=== PATIENT | female | born 1935 | race Caucasian/White ===

== ENCOUNTER 2019-11-04 07:35 | Outpatient (CLI) | payer MEDICARE, SELFPAY ==
[2019-11-04 08:09] LABS: Alanine Aminotransferase 17 U/L (4-35); Albumin Level 4.2 g/dL (3.5-5.1); Alkaline Phosphatase 56 U/L (38-126); Aspartate Amino Transferase 25 U/L (14-36); Bilirubin,Total 0.3 mg/dL (0.2-1.3); Blood Urea Nitrogen 16 mg/dL (7-17); Calcium 9.6 mg/dL (8.4-10.2); Carbon Dioxide 22 mmol/L (22-30); Chloride 108 mmol/L (98-107); Cholesterol 126 mg/dL (0-200); Estimated Glomerular Filt Rate 43; Glucose 119 mg/dL (65-105); HDL Direct 48 mg/dL; Sodium 139 mmol/L (137-145); Triglycerides 117 mg/dL (<150)
[2019-11-04 08:20] LABS: LDL Cholesterol Direct 57 mg/dL
[2019-11-04 08:35] LABS: Creatinine Urine 172.9 mg/dL
[2019-11-04 08:40] LABS: MALB Creatinine Ratio 22.8 mg/g (0-30); Microalbumin Urine Random 39.5 mg/L (0-16.7)
== END 2019-11-04 07:36 | disposition home or self-care (01) ==
PROVIDERS: PCP Internal Medicine; Referring Provider Internal Medicine; Visit Provider Nurse Practitioner
DX: E03.9 Hypothyroidism, unspecified (principal); E11.9 Type 2 diabetes mellitus without complications; E78.5 Hyperlipidemia, unspecified
CPT/HCPCS: 36415; 80053; 80061; 82043; 83036; 84443

== ENCOUNTER → 2020-02-02 15:20 | Outpatient (CLI) | payer MEDICARE, SELFPAY ==
--- NOTE | ~2020-02-02 | XR_ITS ---
EXAMINATION: XR foot LT min 3V DATE: 02/02/2020 16:24 INDICATION: Left foot pain. TECHNIQUE: Dorsoplantar, two oblique and lateral views of the left foot were obtained. COMPARISON: None. FINDINGS: No fracture. Mild hallux valgus with bunion including mild hypertrophic change at the medial head of the first metatarsal. There is a lucency with thin sclerotic margins at the medial head of the first metatarsal with suggestion of a discontinuous cortex with overhanging edge raising suspicion for gout . There is mild overlying soft tissue swelling. 3 mm long thin metallic foreign body in the soft tiss ues medial/plantar to the base of the left first proximal phalanx. Mild polyarticular osteoarthritis in the mid and forefoot most prominent at the first metatarsophalangeal joint. Achilles and plantar c alcaneal spurs. Diffuse osteopenia. IMPRESSION: 1. Prominent erosion at the medial head of the first metatarsal suspicious for gout. 2. Mild polyarticular osteoarthritis in the left mid and forefoot most prominent at the first metatar sophalangeal joint where there is mild hallux valgus. 3. 3 mm metallic foreign body at the medial/plantar base of the great toe. Reviewed, dictated and finalized at location B. IMPRESSION: 1. Prominent erosion at the medial head of the first metatarsal suspicious for gout. 2. Mild polyarticular osteoarthritis in the left mid and forefoot most prominen t at the first metatarsophalangeal joint where there is mild hallux valgus. 3. 3 mm metallic foreign body at the medial/plantar base of the great toe.
== END ==
PROVIDERS: PCP Internal Medicine; Visit Provider Internal Medicine
DX: M79.672 Pain in left foot (principal); M19.072 Primary osteoarthritis, left ankle and foot; M20.12 Hallux valgus (acquired), left foot; S90.452A Superficial foreign body, left great toe, initial encounter
CPT/HCPCS: 73630

== ENCOUNTER 2020-05-06 09:43 | Outpatient (CLI) | payer MEDICARE, SELFPAY ==
[2020-05-06 10:49] LABS: Hemoglobin A1C 5.3 % (<5.7)
[2020-05-06 10:54] LABS: Alanine Aminotransferase 12 U/L (4-35); Albumin Level 3.8 g/dL (3.5-5.1); Alkaline Phosphatase 41 U/L (38-126); Anion Gap 9 mmol/L (8-16); Aspartate Amino Transferase 21 U/L (14-36); Bilirubin,Total 0.3 mg/dL (0.2-1.3); Blood Urea Nitrogen 15 mg/dL (7-17); Calcium 9.3 mg/dL (8.4-10.2); Carbon Dioxide 25 mmol/L (22-30); Chloride 106 mmol/L (98-107); Cholesterol 120 mg/dL (0-200); Estimated Glomerular Filt Rate 47; Glucose 109 mg/dL (65-105); HDL Direct 47 mg/dL; Potassium 4.3 mmol/L (3.4-5.0); Sodium 140 mmol/L (137-145); Triglycerides 161 mg/dL (<150)
[2020-05-06 11:05] LABS: LDL Cholesterol Direct 51 mg/dL
== END 2020-05-06 09:44 | disposition home or self-care (01) ==
LOC: ANHLAB 09:45
PROVIDERS: PCP Internal Medicine; Visit Provider Nurse Practitioner
DX: E78.5 Hyperlipidemia, unspecified (principal); E11.9 Type 2 diabetes mellitus without complications
CPT/HCPCS: 36415; 80053; 80061; 83036

== ENCOUNTER 2021-07-10 10:04 | Outpatient (CLI) | payer MEDICARE, SELFPAY ==
[2021-07-10 11:01] LABS: Basophils Percent Auto 0.2 % (0.2-1.2); Eosinophils Percent Auto 0.3 % (0-4.4); Hematocrit 37.9 % (37.0-47.0); Hemoglobin 12.1 g/dL (12.0-15.0); Immature Granulocyte Absolute 0.02 K/mm3 (0.00-0.031); Immature Granulocyte Percent A 0.3 % (0-0.5); Lymphocytes Absolute Auto 0.58 K/mm3 (0.9-3.2); Lymphocytes Percent Auto 9.9 % (18.3-44.2); Mean Corpuscular HGB Conc 31.9 g/dl (32-36); Mean Corpuscular Hemoglobin 27.4 pg (26-34); Mean Corpuscular Volume 85.9 fl (80-100); Mean Platelet Volume 11.4 fl (7.4-10.4); Monocytes Absolute Auto 0.4 K/mm3 (0.1-0.6); Monocytes Percent Auto 6.3 % (2.6-8.5); Neutrophils Absolute Auto 4.9 K/mm3 (1.3-6.7); Platelet Count Result 195 k/mm3 (150-375); Red Blood Count 4.41 M/mm3 (4.2-5.4); Red Cell Distribution Width 14.7 % (11.5-14.5); White Blood Count 5.9 K/mm3 (4.5-10.0)
[2021-07-10 11:12] LABS: Alanine Aminotransferase 19 U/L (4-35); Albumin Level 3.8 g/dL (3.5-5.1); Alkaline Phosphatase 48 U/L (38-126); Anion Gap 10 mmol/L (8-16); Aspartate Amino Transferase 32 U/L (14-36); Bilirubin,Total 0.4 mg/dL (0.2-1.3); Blood Urea Nitrogen 21 mg/dL (7-17); Calcium 9.2 mg/dL (8.4-10.2); Carbon Dioxide 19 mmol/L (22-30); Chloride 110 mmol/L (98-107); Cholesterol 70 mg/dL (0-200); Estimated Glomerular Filt Rate 33; Glucose 118 mg/dL (65-110); HDL Direct 31 mg/dL; Sodium 139 mmol/L (137-145); Triglycerides 104 mg/dL (<150)
[2021-07-10 11:13] LABS: Hemoglobin A1C 5.5 % (<5.7)
[2021-07-10 13:13] LABS: LDL Cholesterol Direct < 30 mg/dL
== END 2021-07-10 10:05 | disposition home or self-care (01) ==
PROVIDERS: PCP Internal Medicine; Visit Provider Nurse Practitioner
DX: E11.22 Type 2 diabetes mellitus with diabetic chronic kidney disease (principal); N18.30 Chronic kidney disease, stage 3 unspecified; E78.5 Hyperlipidemia, unspecified; E03.9 Hypothyroidism, unspecified; D64.9 Anemia, unspecified
CPT/HCPCS: 36415; 80053; 80061; 83036; 84443; 85025

== ENCOUNTER 2021-07-17 09:45 | Observation (INO) | payer MEDICARE, SELFPAY ==
[2021-07-17] VITALS (27 sets, daily range): BP systolic 122–169; BP diastolic 35–111; PULSE 52–94; RESP 12–23; TEMP 36.4–36.8; O2SAT 95–100; BMI 26.1
--- NOTE | 2021-07-17 10:00 | PC.NURSE ---
Patient alert and oriented although she was not able to tell this RN what month it is. She did correctly state the year and the current president.
--- NOTE | 2021-07-17 10:01 | ECG_ITS ---
Measurements Intervals [place] Rate: 66 P: 43 DE: 148 QRS: -35 QRSD: 158 T: 138 QT: 462 QTc: 487 Interpretive Statements SINUS RHYTHM LEFT AXIS DEVIATION LEFT BUNDLE BRANCH BLOCK BASELINE ARTIFACT- I, II, III, AVR, AVL, AVF ABNORMAL ECG Electronically Signed On 07-17-2021 12:17:19 WEIGHT AND BALANCE CONTROL AGENT by Juan Miguel Rai D.O.
[2021-07-17 10:18] LABS: Basophils Percent Auto 0.4 % (0.2-1.2); Eosinophils Percent Auto 0.5 % (0-4.4); Hematocrit 35.3 % (37.0-47.0); Hemoglobin 11.7 g/dL (12.0-15.0); Immature Granulocyte Absolute 0.03 K/mm3 (0.00-0.031); Immature Granulocyte Percent A 0.5 % (0-0.5); Lymphocytes Absolute Auto 0.51 K/mm3 (0.9-3.2); Lymphocytes Percent Auto 9.1 % (18.3-44.2); Mean Corpuscular HGB Conc 33.1 g/dl (32-36); Mean Corpuscular Hemoglobin 28.3 pg (26-34); Mean Corpuscular Volume 85.3 fl (80-100); Mean Platelet Volume 11.6 fl (7.4-10.4); Monocytes Absolute Auto 0.5 K/mm3 (0.1-0.6); Monocytes Percent Auto 8.8 % (2.6-8.5); Neutrophils Absolute Auto 4.5 K/mm3 (1.3-6.7); Neutrophils Percent Auto 80.7 % (45.5-73.1); Platelet Count Result 149 k/mm3 (150-375); Red Blood Count 4.14 M/mm3 (4.2-5.4); Red Cell Distribution Width 14.9 % (11.5-14.5); White Blood Count 5.6 K/mm3 (4.5-10.0)
--- NOTE | 2021-07-17 10:23 | PC.NURSE ---
EDP at bedside to assess patient.
[2021-07-17 10:29] LABS: Alanine Aminotransferase 17 U/L (4-35); Albumin Level 3.6 g/dL (3.5-5.1); Alkaline Phosphatase 49 U/L (38-126); Anion Gap 9 mmol/L (8-16); Aspartate Amino Transferase 29 U/L (14-36); Bilirubin,Total 0.6 mg/dL (0.2-1.3); Blood Urea Nitrogen 30 mg/dL (7-17); Carbon Dioxide 18 mmol/L (22-30); Chloride 109 mmol/L (98-107); Estimated CRCL calculation 19 ml/min; Estimated Glomerular Filt Rate 36; Glucose 103 mg/dL (65-110); Potassium 4.2 mmol/L (3.4-5.0); Sodium 136 mmol/L (137-145)
--- NOTE | 2021-07-17 10:32 | ED.WEAKNESS ---
HPI - Weakness General Chief complaint: Weakness Stated complaint: Decreased appetite Time Seen by Provider: 07/17/21 10:21 Source: patient and family Mode of arrival: wheelchair Limitations: dementia History of Present Illness HPI Narrative: This 85 year old female patient with significant PMH of CAD, S/P CABG, HLD, HTN presents to the ER with complaints of having generalized weakness for the past five days and has been unable to do any of her normal activities and as well has not eaten anything in 4-5 days. Her appetite has been drastically decreased. She denies any N/V/D, other than the loose stools that is normal for her baseline and she has not had any fevers. She has had a 30 lb weight loss in the past 6 months and resides at home with her spouse who is her primary pediatric critical care nurse. MD Complaint: generalized weakness (Decreased appetite), lack of energy and difficulty walking Onset (ago): day(s) (4-5) Duration: progressively worsening Location: generalized Related Data Home Medications Medication Instructions Recorded Confirmed aspirin 81 mg tablet,delayed 81 mg PO DAILY 04/07/19 07/17/21 release carvedilol 6.25 mg tablet 6.25 mg PO Q12H 04/07/19 07/17/21 clopidogrel 75 mg tablet 75 mg PO DAILY 04/07/19 07/17/21 simvastatin 40 mg tablet 40 mg PO DAILY 04/07/19 07/17/21 loperamide 2 mg capsule 2 mg PO Q6H PRN 03/20/20 07/17/21 Allergies Allergy/AdvReac Type Severity Reaction Status Date / Time No Known Allergies Allergy Verified 07/16/21 08:18 Review of Systems Review of Systems: All systems reviewed & are unremarkable except as noted in HPI and below Constitutional: Constitutional: Denies chills, Reports fatigue, Denies fever(s) and Reports weakness Cardiovascular: Cardiovascular: Denies chest pain Respiratory: Respiratory: Denies cough and Denies dyspnea Gastrointestinal: Gastrointestinal: Denies abdominal pain, Denies constipation, Denies diarrhea, Denies nausea and Denies vomiting Genitourinary: Genitourinary: Denies hematuria, Denies nocturia, Denies dysuria and Denies flank pain Musculoskeletal: Musculoskeletal: Denies back pain, Denies myalgias, Denies arthralgias, Denies joint swelling and Denies muscle cramps Neurologic: Denies confusion, Denies vertigo, Denies dizziness, Denies syncope, Denies headache(s), Denies focal weakness, Denies numbness and Reports weakness Psychiatric: Psychiatric: Denies anxiety, Denies depression and Denies suicidal ideation Endocrine: Endocrine: Denies excessive sweating, Reports fatigue, Denies polydipsia and Denies polyuria Hematologic/Lymphatic: Hematologic/Lymphatic: Denies easy bleeding and Denies easy bruising PMFSH Past Medical History Medical History (Updated 07/17/21 @ 12:29 by Jackelyn Claros NP) Chronic kidney disease (CKD) stage G3b/A1, moderately decreased glomerular filtration rate (GFR) between 30-44 mL/min/1.73 square meter and albuminuria creatinine ratio less than 30 mg/g Coronary artery disease involving [place] coronary artery of [place] heart Dementia, unspecified, without behavioral disturbance Essential hypertension Hyperlipidemia Hypothyroidism (acquired) Surgical History Surgical History (Updated 07/17/21 @ 12:29 by Jackelyn Claros NP) S/P CABG x 4 Family History Family History Mother Patient's mother is Father Cerebrovascular accident Patient's father is Sibling Patient's sister is in good health Patient's brother is in good health Family history of malignant neoplasm Patient's brother is Social History Social History Smoking status: Never smoker Second hand tobacco smoke exposure: No Alcohol intake: never Substance use: never Substance use type: does not use Exam Const: General: no acute distress and alert Orientation/consciousn
[2021-07-17 10:54] LABS: Magnesium 1.8 mg/dL (1.6-2.3)
[2021-07-17 10:57] LABS: Iron 45 ug/dL (37-170)
[2021-07-17 11:08] LABS: Troponin I 0.028 ng/mL (0.000-0.034)
[2021-07-17 11:30] LABS: Hepatitis B Surface Antigen Negative (Negative)
--- NOTE | 2021-07-17 11:35 | PC.NURSE ---
Patient was incontinent of stool. Patient cleaned and straight cath urine sample obtained and sent to lab for processing.
[2021-07-17 11:47] LABS: HIV 1/2 Ab P24 Ag Result Negative (Negative); Hepatitis C Virus Antibody Negative (Negative)
[2021-07-17 11:51] LABS: Add Urine Microscopic? YES; Appearance Urine Cloudy (Clear); Bacteria Urine 4+ /hpf; Bilirubin Urine Negative (Negative); Blood Urine Negative (Negative); Color Urine Amber (Yellow); Glucose Urine UA Negative (Negative); Hyaline Casts Urine 15-19 /lpf; Ketones Urine Trace mg/dL (Negative); Leukocyte Esterase Ur 3+ LEU/UL (Negative); Mucus Urine Rare /lpf; Nitrate Urine Positive (Negative); Protein Urine 1+ mg/dL (Negative); Specific Grav Ur 1.018 (1.001-1.035); Squamous Epithelial Cell Urine Rare /hpf (Few); Urobilinogen Urine Negative mg/dL (<2.0); WBC Urine >75 /hpf
--- NOTE | 2021-07-17 12:28 | PM.IMHP ---
H&P: HPI History of Present Illness Date/Time: 07/17/21 12:28 this is a 85-year-old female patient who lives with her of 60 years. He is at the bedside answering questions although he is very hard of hearing. She is also assisting with answering questions as well. She does have a history of having diabetes, hypertension and coronary artery disease. The patient has not been eating or drinking very well recently. She also feels very weak. The stated that her weight loss of 30 lb has been over the last 15 years. He fears that she has lost her appetite and may lose more weight. The patient is only 59 kg. Her H&H is 11.7 and 35.3. She denies any active bleeding and is only on Plavix and aspirin. Her platelet count is 149. She has a shift to the left with a neutrophil percentage of 80.7. Sodium is slightly low at 136. Chloride 109. Carbon dioxide 18. BUN 30. And creatinine 1.4. Her GFR is 36. The patient is found to be positive for UTI and was started on Rocephin. Patient was started on IV fluids. Patient has no known drug-resistant bacteria. No imaging was performed at This time. The patient is being admitted to inpatient services on the date of service of 07/17/2021. Chief Complaint: Weakness Review of Systems Review of Systems: All systems reviewed & are unremarkable except as noted in HPI and below Constitutional: Constitutional: Reports as per HPI and Reports no additional constitutional complaints Eyes: Eyes: Reports as per HPI and Reports no additional eye complaints ENT: Reports system reviewed and no additional complaints, except as documented and Reports Normal hearing present Cardiovascular: Cardiovascular: Reports no additional cardiovascular complaints Respiratory: Respiratory: Reports no additional respiratory complaints and Reports no additional respiratory complaints Gastrointestinal: Gastrointestinal: Reports as per HPI and Reports no additional gastrointestinal complaints Musculoskeletal: Musculoskeletal: Reports no additional musculoskeletal complaints Integumentary/Breasts: Skin/Breast: Reports system reviewed and no additional complaints, except as docu and Reports as per HPI Neurologic: Reports system reviewed and no additional complaints, except as documented, Reports as per HPI and Reports Normal hearing present Psychiatric: Psychiatric: Reports no additional psychiatric complaints and Reports as per HPI Endocrine: Endocrine: Reports no additional endocrine complaints Hematologic/Lymphatic: Hematologic/Lymphatic: Reports no additional hematologic/lymphatic complaints Allergic/Immunologic: Allergic/Immunologic: Reports no additional allergic/immunologic complaints PMFSH Past Medical History Medical History Chronic kidney disease (CKD) stage G3b/A1, moderately decreased glomerular filtration rate (GFR) between 30-44 mL/min/1.73 square meter and albuminuria creatinine ratio less than 30 mg/g Coronary artery disease involving [place] coronary artery of [place] heart Dementia, unspecified, without behavioral disturbance Essential hypertension Hyperlipidemia Hypothyroidism (acquired) Surgical History Surgical History S/P CABG x 4 Family History Family History Mother Patient's mother is Father Cerebrovascular accident Patient's father is Sibling Patient's sister is in good health Patient's brother is in good health Family history of malignant neoplasm Patient's brother is Social History Social History (Updated 07/17/21 @ 12:42 by Jackelyn Claros NP) Social History: The patient lives with her of 60 years. Her is a durable power employment attorney for healthcare. She has 3 children. She retired 15 years ago from [employer]. Lifelong nonsmoker. She does
[2021-07-17] MEDS: SODIUM CHLORIDE 0.9% IV 1,000 ML 75 ML IV CONT (13:42)
--- NOTE | 2021-07-17 14:45 | PC.NURSE ---
Patient report called to JOANNA Fergsuon on 3 Med/Surg. All questions answered.
--- NOTE | 2021-07-17 14:55 | PC.NURSE ---
This patient, Jessica Blas, was admitted to [facility] Surg Room 305-01. Patient/family oriented to hospital policies and general routines including ID bracelet, bed and alarms, visiting hours, pain management, procedures, bathroom and other care routines, personal items, smoking policy, room service/diet, and visiting hours.Report received from Alexandria MARSHALL. Information on how to activate the Rapid Response Team has been discussed. Patient/Family are encouraged to report perceived risks to care and to ask questions if they do not understand what they are told or what they should do.
[2021-07-17 16:21] LABS: Glucose Point of Care 92 mg/dl (65-105)
[2021-07-17] MEDS: SIMVASTATIN 20 MG TABLET 40 MG PO (21:27)
[2021-07-17 22:10] LABS: Glucose Point of Care 81 mg/dl (65-105)
[2021-07-18] VITALS (11 sets, daily range): BP systolic 129–190; BP diastolic 50–70; PULSE 56–70; RESP 16–20; TEMP 36.3–37.1; O2SAT 94–98; BMI 26.1
[2021-07-18] MEDS: SODIUM CHLORIDE 0.9% IV 1,000 ML 75 ML IV CONT (04:57)
[2021-07-18 07:45] LABS: Basophils Percent Auto 0.3 % (0.2-1.2); Eosinophils Absolute Auto 0.1 K/mm3 (0-0.3); Eosinophils Percent Auto 1.4 % (0-4.4); Hematocrit 31.3 % (37.0-47.0); Hemoglobin 10.2 g/dL (12.0-15.0); Immature Granulocyte Absolute 0.02 K/mm3 (0.00-0.031); Immature Granulocyte Percent A 0.6 % (0-0.5); Lymphocytes Percent Auto 16.9 % (18.3-44.2); Mean Corpuscular HGB Conc 32.6 g/dl (32-36); Mean Corpuscular Hemoglobin 27.7 pg (26-34); Mean Corpuscular Volume 85.1 fl (80-100); Monocytes Absolute Auto 0.4 K/mm3 (0.1-0.6); Monocytes Percent Auto 11.9 % (2.6-8.5); Neutrophils Absolute Auto 2.4 K/mm3 (1.3-6.7); Neutrophils Percent Auto 68.9 % (45.5-73.1); Platelet Count Result 141 k/mm3 (150-375); Red Blood Count 3.68 M/mm3 (4.2-5.4); Red Cell Distribution Width 14.9 % (11.5-14.5); White Blood Count 3.5 K/mm3 (4.5-10.0)
[2021-07-18 07:48] LABS: Lactic Acid Reflex 0.6 mmol/L (0.7-2.1)
[2021-07-18] MEDS: OXYBUTYNIN CHLORIDE 5 MG TABLET PO (08:13)
[2021-07-18] MEDS: ASPIRIN 81 MG ENTERIC TABLET PO (08:13)
[2021-07-18] MEDS: hydrALAZINE HCL 50 MG TABLET 100 MG PO ×3 (08:13→18:03)
[2021-07-18] MEDS: carvediloL 12.5 MG TABLET PO ×2 (08:13→20:41)
[2021-07-18 08:17] LABS: Glucose Point of Care 96 mg/dl (65-105)
[2021-07-18 09:00] LABS: Alanine Aminotransferase 14 U/L (4-35); Albumin Level 2.9 g/dL (3.5-5.1); Alkaline Phosphatase 41 U/L (38-126); Anion Gap 7 mmol/L (8-16); Aspartate Amino Transferase 24 U/L (14-36); Bilirubin,Total 0.4 mg/dL (0.2-1.3); Blood Urea Nitrogen 26 mg/dL (7-17); Calcium 8.6 mg/dL (8.4-10.2); Carbon Dioxide 20 mmol/L (22-30); Chloride 111 mmol/L (98-107); Estimated CRCL calculation 28 ml/min; Estimated Glomerular Filt Rate 47; Glucose 88 mg/dL (65-110); Lactate Dehydrogenase 370 U/L (313-618); Lipase 39 U/L (23-300); Magnesium 1.8 mg/dL (1.6-2.3); Potassium 4.2 mmol/L (3.4-5.0); Sodium 138 mmol/L (137-145)
[2021-07-18 09:37] LABS: Hemoglobin A1C 5.4 % (<5.7)
[2021-07-18 12:21] LABS: Glucose Point of Care 112 mg/dl (65-105)
[2021-07-18] MEDS: CYANOCOBALAMIN INJ 1,000 MCG/ML VIAL 1000 MCG IM (12:23)
--- NOTE | 2021-07-18 13:22 | PM.IMPN ---
Progress Note: A&P Assessment and Plan (1) Urinary tract infection: Qualifiers: Hematuria presence: without hematuria Urinary tract infection type: site unspecified Qualified Code(s): N39.0 - Urinary tract infection, site not specified Code(s): N39.0 - Urinary tract infection, site not specified Status: Acute Assessment and Plan: Patient is an 85-year-old woman with a history of CKD, CAD, hypertension, dyslipidemia, hypothyroidism, diabetes on metformin, who presented to the emergency room with generalized weakness, and not eating for the last 5 days. The patient's tells me that she has only been eating about 1-2 bites per meal and has not been drinking very much. They were concerned she was getting dehydrated. She was also more weak than normal inside to bring her to the emergency room for further evaluation workup. Initial vitals showed blood pressure 122/43, heart rate 65, afebrile, normal oxygenation on room air. Initial labs showed normal white blood cell count, normocytic anemia with a hemoglobin of 11, hematocrit 35%, slight thrombocytopenia at 49,000, elevated neutrophils at 85%. Slight hyponatremia at 136. Creatinine slightly higher than her baseline at 1.4, BUN 30, normal glucose, normal LFTs normal magnesium, normal ferritin, normal troponin, normal lipase, normal TSH. Deficient vitamin B12 at 202. Urinalysis was cloudy with positive nitrite, 3+ leukocyte esterase, greater than 75 RBCs and 4+ bacteria. Negative hepatitis B, C and HIV testing. Hemoglobin A1c is well controlled at 5.4. Urine culture blood cultures were taken. Patient was admitted into the hospital with generalized weakness in the setting of urinary tract infection and started on IV antibiotics and some IV fluid hydration. Urine culture and blood cultures are pending at this time Continue IV Rocephin Patient states she is feeling well today and ate 75% of her breakfast. Continue monitoring for culture results. (2) Chronic kidney disease (CKD) stage G3b/A1, moderately decreased glomerular filtration rate (GFR) between 30-44 mL/min/1.73 square meter and albuminuria creatinine ratio less than 30 mg/g: Code(s): N18.3 - Chronic kidney disease, stage 3 (moderate) Status: Chronic Assessment and Plan: Creatinine this morning came back down to her baseline at 1.1 with a BUN of 26. She is eating and drinking well at this time so I will discontinue the IV fluids to prevent fluid overload. Will continue her lisinopril and carvedilol for blood pressure control. Continue monitoring renal function and electrolytes (3) Essential hypertension: Code(s): I10 - Essential (primary) hypertension Status: Chronic Assessment and Plan: Patient had elevated blood pressure this morning and was given hydralazine with improvement of her blood pressure back down to 140 systolic. Will continue her lisinopril and Coreg. Make adjustments of blood pressure medications if needed. Continue monitoring. (4) Hyperlipidemia: Qualifiers: Hyperlipidemia type: unspecified Qualified Code(s): E78.5 - Hyperlipidemia, unspecified Code(s): E78.5 - Hyperlipidemia, unspecified Status: Chronic Assessment and Plan: LFTs are normal. Continue her statin medication. (5) Hypothyroidism (acquired): Code(s): E03.9 - Hypothyroidism, unspecified Status: Chronic Assessment and Plan: TSH is normal. She is not currently on any thyroid medication at this time. (6) OAB (overactive bladder): Code(s): N32.81 - Overactive bladder Status: Acute Assessment and Plan: Continue with home medications of oxybutynin
[2021-07-18] MEDS: lisinopriL 20 MG TABLET 40 MG PO (15:28)
[2021-07-18 16:08] LABS: Glucose Point of Care 90 mg/dl (65-105)
[2021-07-18] MEDS: SIMVASTATIN 20 MG TABLET 40 MG PO (20:41)
[2021-07-19 06:00] VITALS: BP 164/59; PULSE 58; RESP 16; TEMP 36.4; O2SAT 93
[2021-07-19 06:57] LABS: Hematocrit 32.5 % (37.0-47.0); Hemoglobin 10.3 g/dL (12.0-15.0); Mean Corpuscular HGB Conc 31.7 g/dl (32-36); Mean Corpuscular Hemoglobin 27.8 pg (26-34); Mean Corpuscular Volume 87.6 fl (80-100); Mean Platelet Volume 11.9 fl (7.4-10.4); Platelet Count Result 152 k/mm3 (150-375); Red Blood Count 3.71 M/mm3 (4.2-5.4); Red Cell Distribution Width 14.7 % (11.5-14.5); White Blood Count 4.1 K/mm3 (4.5-10.0)
[2021-07-19 07:07] LABS: Anion Gap 7 mmol/L (8-16); Blood Urea Nitrogen 17 mg/dL (7-17); Calcium 8.4 mg/dL (8.4-10.2); Carbon Dioxide 19 mmol/L (22-30); Chloride 113 mmol/L (98-107); Estimated CRCL calculation 33 ml/min; Estimated Glomerular Filt Rate 60; Glucose 106 mg/dL (65-110); Potassium 3.9 mmol/L (3.4-5.0); Sodium 139 mmol/L (137-145)
[2021-07-19 07:37] LABS: Glucose Point of Care 98 mg/dl (65-105)
[2021-07-19 07:59] VITALS: PULSE 62
[2021-07-19] MEDS: carvediloL 12.5 MG TABLET PO (07:59)
[2021-07-19 08:00] VITALS: PULSE 62; RESP 16; O2SAT 93
[2021-07-19] MEDS: OXYBUTYNIN CHLORIDE 5 MG TABLET PO (08:00)
[2021-07-19] MEDS: lisinopriL 20 MG TABLET 40 MG PO (08:01)
[2021-07-19] MEDS: hydrALAZINE HCL 50 MG TABLET 100 MG PO (08:01)
[2021-07-19] MEDS: ASPIRIN 81 MG ENTERIC TABLET PO (08:01)
[2021-07-19] MEDS: CYANOCOBALAMIN INJ 1,000 MCG/ML VIAL 1000 MCG IM (08:01)
--- NOTE | 2021-07-19 10:25 | PM.DS ---
DS: Admitting Diagnosis Discharge Date 07/19/21 Admitting Diagnosis Weakness DS: Discharge Diagnosis Discharge Diagnosis (1) Urinary tract infection: Qualifiers: Hematuria presence: without hematuria Urinary tract infection type: site unspecified Qualified Code(s): N39.0 - Urinary tract infection, site not specified Code(s): N39.0 - Urinary tract infection, site not specified Status: Acute Assessment and Plan: Patient is an 85-year-old woman with a history of CKD, CAD, hypertension, dyslipidemia, hypothyroidism, diabetes on metformin, who presented to the emergency room with generalized weakness, and not eating for the last 5 days. The patient's tells me that she has only been eating about 1-2 bites per meal and has not been drinking very much. They were concerned she was getting dehydrated. She was also more weak than normal inside to bring her to the emergency room for further evaluation workup. Initial vitals showed blood pressure 122/43, heart rate 65, afebrile, normal oxygenation on room air. Initial labs showed normal white blood cell count, normocytic anemia with a hemoglobin of 11, hematocrit 35%, slight thrombocytopenia at 49,000, elevated neutrophils at 85%. Slight hyponatremia at 136. Creatinine slightly higher than her baseline at 1.4, BUN 30, normal glucose, normal LFTs normal magnesium, normal ferritin, normal troponin, normal lipase, normal TSH. Deficient vitamin B12 at 202. Urinalysis was cloudy with positive nitrite, 3+ leukocyte esterase, greater than 75 RBCs and 4+ bacteria. Negative hepatitis B, C and HIV testing. Hemoglobin A1c is well controlled at 5.4. Urine culture blood cultures were taken. Patient was admitted into the hospital with generalized weakness in the setting of urinary tract infection and started on IV antibiotics and some IV fluid hydration. Urine culture is growing klebsella pneumonia. Blood cultures show no growth at this time Will switch IV Ceftriaxone to PO Cefdinir upon discharge twice daily for 5 more days, 7 total days of treatment and a probiotic. Patient states she is feeling well today and ate 100% of her breakfast. She did well with therapy walked about 80 feet yesterday with a walker and was contact guard. She has a walker at home and will have home health set up. Follow up instructions given. Return to ER warnings given. Patient and understand and agree with the plan. All questions answered. (2) Chronic kidney disease (CKD) stage G3b/A1, moderately decreased glomerular filtration rate (GFR) between 30-44 mL/min/1.73 square meter and albuminuria creatinine ratio less than 30 mg/g: Code(s): N18.3 - Chronic kidney disease, stage 3 (moderate) Status: Chronic Assessment and Plan: Creatinine this morning came back down to her baseline at 0.9 with a BUN of 17. She is eating and drinking well at this time (3) Essential hypertension: Code(s): I10 - Essential (primary) hypertension Status: Chronic Assessment and Plan: Continue home medications (4) Hyperlipidemia: Qualifiers: Hyperlipidemia type: unspecified Qualified Code(s): E78.5 - Hyperlipidemia, unspecified Code(s): E78.5 - Hyperlipidemia, unspecified Status: Chronic Assessment and Plan: LFTs are normal. Continue her statin medication. (5) Hypothyroidism (acquired): Code(s): E03.9 - Hypothyroidism, unspecified Status: Chronic Assessment and Plan: TSH is normal. She is not currently on any thyroid medication at this time. (6) OAB (overactive bladder): Code(s): N32.81 - Overactive bladder Status: Acute Assessment and Plan: Continue wit
== END 2021-07-19 10:51 | disposition home health service (06) ==
LOC: ANHED 12:14 → ANH3MEDSUR 13:57
PROVIDERS: Emergency Medicine; Nurse Practitioner; Physician Assistant; Admitting Provider Internal Medicine; Emergency Provider Nurse Practitioner Adult Health; PCP Internal Medicine; Visit Provider Internal Medicine
DX: N39.0 Urinary tract infection, site not specified (principal); I25.10 Atherosclerotic heart disease of native coronary artery without angina pectoris; I12.9 Hypertensive chronic kidney disease with stage 1 through stage 4 chronic kidney disease, or unspecified chronic kidney disease; N18.32 Chronic kidney disease, stage 3b; E11.22 Type 2 diabetes mellitus with diabetic chronic kidney disease; E11.9 Type 2 diabetes mellitus without complications; E78.5 Hyperlipidemia, unspecified; E53.8 Deficiency of other specified B group vitamins; N32.81 Overactive bladder; B96.1 Klebsiella pneumoniae [K. pneumoniae] as the cause of diseases classified elsewhere; Z79.01 Long term (current) use of anticoagulants; Z79.82 Long term (current) use of aspirin; Z79.84 Long term (current) use of oral hypoglycemic drugs; Z95.1 Presence of aortocoronary bypass graft; Z11.4 Encounter for screening for human immunodeficiency virus [HIV]
CPT/HCPCS: 36415; 80048; 80053; 81001; 82607; 82728; 82948; 83036; 83540; 83605; 83615; 83690; 83735; 84443; 84484; 85025; 85027; 86140; 86703; 86803; 87040; 87077; 87086; 87186; 87340; 93005; 96365; 96366; 96372; 96376; 97110; 97116; 97161; 97165; 97530; 99285; A9270; G0378; G0432; J0696; J3420; J7030

== ENCOUNTER 2022-01-13 08:32 | Outpatient (CLI) | payer MEDICARE, SELFPAY ==
[2022-01-13 09:07] LABS: Basophils Absolute Auto 0.1 K/mm3 (0.0-0.1); Basophils Percent Auto 1.2 % (0.2-1.2); Eosinophils Absolute Auto 0.2 K/mm3 (0-0.3); Eosinophils Percent Auto 2.5 % (0-4.4); Hematocrit 37.6 % (37.0-47.0); Hemoglobin 11.5 g/dL (12.0-15.0); Immature Granulocyte Absolute 0.03 K/mm3 (0.00-0.031); Immature Granulocyte Percent A 0.4 % (0-0.5); Lymphocytes Absolute Auto 1.12 K/mm3 (0.9-3.2); Lymphocytes Percent Auto 13.1 % (18.3-44.2); Mean Corpuscular HGB Conc 30.6 g/dl (32-36); Mean Corpuscular Hemoglobin 26.1 pg (26-34); Mean Corpuscular Volume 85.3 fl (80-100); Mean Platelet Volume 11.5 fl (7.4-10.4); Monocytes Absolute Auto 0.7 K/mm3 (0.1-0.6); Monocytes Percent Auto 8.5 % (2.6-8.5); Neutrophils Absolute Auto 6.3 K/mm3 (1.3-6.7); Neutrophils Percent Auto 74.3 % (45.5-73.1); Platelet Count Result 258 k/mm3 (150-375); Red Blood Count 4.41 M/mm3 (4.2-5.4); Red Cell Distribution Width 14.6 % (11.5-14.5); White Blood Count 8.5 K/mm3 (4.5-10.0)
[2022-01-13 09:12] LABS: Hemoglobin A1C 5.4 % (<5.7)
[2022-01-13 09:13] LABS: Alanine Aminotransferase 13 U/L (6-35); Albumin Level 4.2 g/dL (3.5-5.1); Alkaline Phosphatase 55 U/L (38-126); Anion Gap 9 mmol/L (8-16); Aspartate Amino Transferase 22 U/L (14-36); Bilirubin,Total 0.5 mg/dL (0.2-1.3); Blood Urea Nitrogen 25 mg/dL (7-17); Calcium 9.4 mg/dL (8.4-10.2); Carbon Dioxide 24 mmol/L (22-30); Chloride 105 mmol/L (98-107); Cholesterol 184 mg/dL (0-200); Estimated Glomerular Filt Rate 47; Glucose 101 mg/dL (65-110); HDL Direct 58 mg/dL; Potassium 3.8 mmol/L (3.4-5.0); Sodium 138 mmol/L (137-145); Triglycerides 115 mg/dL (<150)
[2022-01-13 09:25] LABS: LDL Cholesterol Direct 81 mg/dL
== END 2022-01-13 08:33 | disposition home or self-care (01) ==
PROVIDERS: PCP Internal Medicine; Visit Provider Internal Medicine
DX: D64.9 Anemia, unspecified (principal); E78.5 Hyperlipidemia, unspecified; E11.51 Type 2 diabetes mellitus with diabetic peripheral angiopathy without gangrene; I10 Essential (primary) hypertension; E53.8 Deficiency of other specified B group vitamins; E03.9 Hypothyroidism, unspecified
CPT/HCPCS: 36415; 80053; 80061; 82607; 83036; 84443; 85025

== ENCOUNTER 2022-07-29 10:21 | Outpatient (CLI) | payer MEDICARE, SELFPAY ==
[2022-07-29 11:06] LABS: Alanine Aminotransferase 13 U/L (6-35); Alkaline Phosphatase 64 U/L (38-126); Anion Gap 5 mmol/L (8-16); Aspartate Amino Transferase 20 U/L (14-36); Bilirubin,Total 0.5 mg/dL (0.2-1.3); Blood Urea Nitrogen 18 mg/dL (7-17); Calcium 8.9 mg/dL (8.4-10.2); Carbon Dioxide 26 mmol/L (22-30); Chloride 107 mmol/L (98-107); Cholesterol 142 mg/dL (0-200); Estimated Glomerular Filt Rate 47; Glucose 100 mg/dL (65-110); HDL Direct 51 mg/dL; Potassium 4.4 mmol/L (3.4-5.0); Sodium 138 mmol/L (137-145); Triglycerides 152 mg/dL (<150)
[2022-07-29 11:12] LABS: LDL Cholesterol Direct 64 mg/dL
[2022-07-29 11:17] LABS: Hemoglobin A1C 5.6 % (<5.7)
== END 2022-07-29 10:22 | disposition home or self-care (01) ==
LOC: ANHLAB 10:23
PROVIDERS: PCP Internal Medicine; Visit Provider Nurse Practitioner
DX: E11.22 Type 2 diabetes mellitus with diabetic chronic kidney disease (principal); E78.5 Hyperlipidemia, unspecified; N18.30 Chronic kidney disease, stage 3 unspecified
CPT/HCPCS: 36415; 80053; 80061; 83036

== ENCOUNTER 2022-08-04 11:13 | Emergency (ER) | payer MEDICARE, SELFPAY ==
[2022-08-04 11:25] VITALS: BP 175/65; PULSE 61; RESP 18; TEMP 36.3; O2SAT 98
--- NOTE | 2022-08-04 12:24 | ED.SKABFB ---
HPI - Skin/Abscess/Foreign Bdy General Chief complaint: Skin/Abscess/Foreign Body Stated complaint: growth to right eye Time Seen by Provider: 08/04/22 12:02 Source: patient, family and RN notes reviewed Mode of arrival: ambulatory Limitations: no limitations History of Present Illness HPI narrative: This is an 86 year old female who presents with her for evaluation of right eyelid lesion. Patient reports there has been bump on her right upper eyelid for several weeks. She reports it does not bother her. She denies blurred vision, pain, drainage, or fever. She was told by her PCP to come to ER to get lesion evaluated and possibly removed. Related Data Home Medications Medication Instructions Recorded Confirmed aspirin 81 mg tablet,delayed 81 mg PO DAILY 04/07/19 07/29/22 release carvedilol 6.25 mg tablet (Coreg) 12.5 mg PO BID 04/07/19 07/29/22 simvastatin 40 mg tablet 40 mg PO HS 04/07/19 07/29/22 Prevagen 1 tablet BYMOUTH DAILY 07/17/21 07/29/22 loperamide 2 mg capsule (Imodium 2 mg PO DAILY PRN 08/14/21 07/29/22 A-D) Allergies Allergy/AdvReac Type Severity Reaction Status Date / Time No Known Allergies Allergy Verified 08/04/22 11:38 Review of Systems Review of Systems: All systems reviewed & are unremarkable except as noted in HPI and below PMFSH Past Medical History Medical History Chronic kidney disease (CKD) stage G3b/A1, moderately decreased glomerular filtration rate (GFR) between 30-44 mL/min/1.73 square meter and albuminuria creatinine ratio less than 30 mg/g Coronary artery disease involving [place] coronary artery of [place] heart Dementia, unspecified, without behavioral disturbance Essential hypertension Hyperlipidemia Hypothyroidism (acquired) Surgical History Surgical History S/P CABG x 4 Family History Family History Mother Patient's mother is Father Cerebrovascular accident Patient's father is Sibling Patient's sister is in good health Patient's brother is in good health Family history of malignant neoplasm Patient's brother is Social History Social History Social History: The patient lives with her of 60 years. Her is a durable power tax associate attorney for healthcare. She has 3 children. She retired 15 years ago from [employer]. Lifelong nonsmoker. She does not use any alcohol marijuana or illicit drugs. Code status full code Smoking status: Never smoker Second hand tobacco smoke exposure: No Alcohol intake: never Substance use: never Substance use type: does not use Spiritual care concerns: No Exam Const: General: no acute distress and alert Nutritional Appearance: well nourished Orientation/consciousness: patient oriented x3 HENMT: Head: normal to inspection Face and sinus: normal facial exam Mouth: Yes Normal oral and palatal mucosa present, Yes lip normal and Yes moist mucous membranes Eyes: Conjunctivae: conjunctivae normal Pupils: Equal, round and reactive pupils present EOM: EOMs intact bilaterally Other: right upper eyelid with flesh color skin tab with that is scaly with brown central discoloration on lid and lid margin, no surround swelling or erythema Resp: Effort & Inspection: normal respiratory effort Skin: General skin exam: normal color Neuro: General: patient oriented x3, moves all extremities and CN's II-XI intact bilaterally Extrem: General: normal to inspection Psych: Mental Status: mental status grossly normal Affect: normal affect Attitude: cooperative Course Reevaluation(s) Reevaluation #1: I Discussed with patient and that she will need to see plastic surgery or ophthalmology for evaluation and possible excision. They wer
[2022-08-04 12:45] VITALS: BP 155/85; PULSE 66; RESP 15; O2SAT 99
== END 2022-08-04 12:49 | disposition home or self-care (01) ==
PROVIDERS: Emergency Provider General Practice; PCP Internal Medicine
DX: H02.89 Other specified disorders of eyelid (principal); I12.9 Hypertensive chronic kidney disease with stage 1 through stage 4 chronic kidney disease, or unspecified chronic kidney disease; N18.32 Chronic kidney disease, stage 3b; I25.10 Atherosclerotic heart disease of native coronary artery without angina pectoris; F03.90 Unspecified dementia, unspecified severity, without behavioral disturbance, psychotic disturbance, mood disturbance, and anxiety; E03.9 Hypothyroidism, unspecified; Z95.1 Presence of aortocoronary bypass graft; Z79.82 Long term (current) use of aspirin
CPT/HCPCS: 99282

== ENCOUNTER 2023-03-16 12:10 | Outpatient (CLI) | payer MEDICARE, SELFPAY ==
[2023-03-16 13:05] LABS: Hematocrit 34.4 % (37.0-47.0); Hemoglobin 10.7 g/dL (12.0-15.0); Mean Corpuscular HGB Conc 31.1 g/dl (32-36); Mean Corpuscular Hemoglobin 27.2 pg (26-34); Mean Corpuscular Volume 87.3 fl (80-100); Mean Platelet Volume 11.7 fl (7.4-10.4); Platelet Count Result 211 k/mm3 (150-375); Red Blood Count 3.94 M/mm3 (4.2-5.4); Red Cell Distribution Width 15.3 % (11.5-14.5); White Blood Count 7.2 K/mm3 (4.5-10.0)
[2023-03-16 13:14] LABS: Hemoglobin A1C 5.3 % (<5.7)
[2023-03-16 14:15] LABS: Alanine Aminotransferase 10 U/L (6-35); Albumin Level 3.7 g/dL (3.5-5.1); Alkaline Phosphatase 57 U/L (38-126); Anion Gap 8 mmol/L (8-16); Aspartate Amino Transferase 19 U/L (14-36); Bilirubin,Total 0.5 mg/dL (0.2-1.3); Blood Urea Nitrogen 15 mg/dL (7-17); Calcium 8.4 mg/dL (8.4-10.2); Carbon Dioxide 23 mmol/L (22-30); Chloride 108 mmol/L (98-107); Cholesterol 135 mg/dL (0-200); Estimated Glomerular Filt Rate 43; Glucose 87 mg/dL (65-110); HDL Direct 44 mg/dL; Potassium 3.7 mmol/L (3.4-5.0); Sodium 139 mmol/L (137-145); Triglycerides 138 mg/dL (<150)
[2023-03-16 14:26] LABS: LDL Cholesterol Direct 64 mg/dL
== END 2023-03-16 12:11 | disposition home or self-care (01) ==
LOC: ANHLAB 12:11
PROVIDERS: PCP Nurse Practitioner; Visit Provider Nurse Practitioner
DX: E78.5 Hyperlipidemia, unspecified (principal); E53.8 Deficiency of other specified B group vitamins; E11.9 Type 2 diabetes mellitus without complications; E03.9 Hypothyroidism, unspecified
CPT/HCPCS: 36415; 80053; 80061; 83036; 84443; 85027

== ENCOUNTER 2023-09-22 07:21 | Outpatient (CLI) | payer MEDICARE, SELFPAY ==
[2023-09-22 08:14] LABS: Alanine Aminotransferase 9 U/L (6-35); Albumin Level 3.9 g/dL (3.5-5.1); Alkaline Phosphatase 51 U/L (38-126); Anion Gap 8 mmol/L (4-12); Aspartate Amino Transferase 16 U/L (14-36); Bilirubin,Total 0.6 mg/dL (0.2-1.3); Blood Urea Nitrogen 18 mg/dL (7-17); Calcium 9.3 mg/dL (8.4-10.2); Carbon Dioxide 23 mmol/L (22-30); Chloride 110 mmol/L (98-107); Cholesterol 126 mg/dL (0-200); Estimated Glomerular Filt Rate 43; Glucose 114 mg/dL (65-110); HDL Direct 52 mg/dL; Potassium 3.9 mmol/L (3.4-5.0); Sodium 141 mmol/L (137-145); Triglycerides 82 mg/dL (<150)
[2023-09-22 08:26] LABS: LDL Cholesterol Direct 61 mg/dL
[2023-09-22 12:20] LABS: Hemoglobin A1C 5.3 % (<5.7)
== END 2023-09-22 07:22 | disposition home or self-care (01) ==
LOC: ANHLAB 07:24
PROVIDERS: PCP Family Medicine; Visit Provider Nurse Practitioner
DX: E78.5 Hyperlipidemia, unspecified (principal); E11.22 Type 2 diabetes mellitus with diabetic chronic kidney disease; E03.9 Hypothyroidism, unspecified; N18.30 Chronic kidney disease, stage 3 unspecified
CPT/HCPCS: 36415; 80053; 80061; 83036; 84443

== ENCOUNTER 2024-07-19 09:20 | Outpatient (CLI) | payer MEDICARE, SELFPAY ==
--- OUTSIDE RECORDS SUMMARY | 2024-07-19 09:26 | XMS_ITS | Referral Summary ---
Author Organization [facility] [address] Address [address] [place] [address] Care Team Providers Care Adult High School Instructor Name Role Phone Geronimo Murillo MD Primary Care Provider [phone] [phone] Allergies No known active allergies Medications aspirin (ASPIRIN LOW-STRENGTH) 81 mg chewable tablet chew 1 tablet by oral route every day 0 0 6 Active oxybutynin (DITROPAN) 5 mg tablet take 1 tablet by oral route 2 times every day as needed 0 0 6 Active Additional Information Patient taking differently:5 mgoral Daily, Reported on 10/12/2022 lisinopriL (PRINIVIL,ZESTR IL) 40 mg tablet Take 1 tablet (40 mg total) by mouth daily 0 Active hydrALAZINE (APRESOLINE) 100 mg tablet Take 1 tablet (100 mg total) by mouth 4 (four) times a day 1 Active cyanocobalamin (Vitamin B-12) 1,000 mcg tablet TAKE 1 TABLET BY MOUTH EVERY DAY IN THE MORNING (OTC NOT COVERED) 2 Active simvastatin (ZOCOR) 40 mg tabletIndicatio ns:Coronary artery disease involving morongo coronary artery of morongo heart without angina pectoris TAKE 1 TABLET BY MOUTH EVERY DAY AT NIGHT 90 tablet 2 3 Active carvediloL (COREG) 12.5 mg tabletIndicatio ns:Coronary artery disease involving [place] coronary artery of morongo heart without angina pectoris TAKE 1 TABLET BY MOUTH TWICE A DAY WITH FOOD 30 tablet 4 Active Active Problems Problem Noted Date Diagnosed Date Systolic murmur 10/12/2022 Bruit of right carotid artery 04/06/2022 Abnormal stress test 05/04/2019 H/O cardiomyopathy 03/23/2019 LBBB (left bundle branch block) 03/29/2018 H/O acute myocardial infarction 03/16/2017 Rectal hemorrhage 09/10/2016 Overview (10/23/2016): Rectal bleed Chronic coronary artery disease 12/26/2015 History of coronary artery bypass surgery 2015 Overview (09/03/2016): S/P CABG x 4 Hypertension associated with diabetes 12/12/2015 Overview (09/03/2016): HTN (hypertension), benign Chronic systolic heart failure ([facility]) 016 Overview (09/04/2016): Chronic systolic heart failure Acute non-ST elevation myoca rdial infarction (NSTEMI) ([facility]) 12/12/2015 Overview (09/04/2016): NSTEMI (non-ST elevated myocardial infarction) Cardiomyopathy 12/12/2015 Overview (09/04/2016): Cardiomyopathy Coronary artery disease invo lving morongo coronary artery of morongo heart without angina pectoris 12/12/2015 Overview (09/04/2016): Coronary artery disease involving [place] coronary artery of morongo heart without angina pectoris Mixed diabetic hyperlipidemi a associated with type 2 diabetes mellitus ([facility]) 12/12/2015 Overview (09/04/2016): DM type 2 with diabetic dyslipidemia Social History Tobacco Use Types Packs/Day Years Used Date Smoking Tobacco: Never Smokeless Tobacco: Never Tobacco Cessation:Counseling Given: Not Answered Alcohol Use Standard Drinks/Week Comments No 0 (1 standard drink = 0.6 oz pur e alcohol) Personal Safety Answer Date Recorded Getting School Help Needed Not on file 05/27 Comments Unknown Sex and Gender Information Value Date Recorded Sex Assigned at Not on file Legal Sex Female 8: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 TECHNOLOGIST Gender Identity Not on file Sexual Orientation Not on file Last Filed Vital Signs Vital Sign Reading Time Taken Comments Blood Pressure 160/74 12/08/2022 12:12 PM CDT Pulse 61 12/08/2022 11:41 AM CDT Temperature 36.3 C (97.3 F) 03/27/2020 2:58 PM CDT Respiratory Rate 19 03/11/2020 7:53 AM CDT Oxygen Saturation 95% 12/08/2022 11:41 AM CDT Inhaled Oxygen Concentration - - Weight 65.3 kg (144 lb) 12/08/2022 11:41 AM CDT Height 152.4 cm (5') 12/08/2022 11:41 AM CDT Body Mass Index 28.12 12/08/2022 11:41 AM CDT Plan of Treatment Not on file Procedures Procedure Name Priority Date/Time Associated Diagnosis Comments POCT LIPID PANEL Routine 04/06/2022 9:01 AM FIBRE TECHNOLOGIST Coronary artery disease involving [place] coronary artery of morongo heart without angina pectoris Mixed diabetic hyperlipidemia associated with type 2 diabetes mellitus (CMS/HCC) ([facility]) from Last 3 Months or Most Recently Relevant to Health Maintenance Results * POCT lipid panel (04/06/2022 9:01 AM FIBRE TECHNOLOGIST) Cholesterol, POC 133 mg/dL Comment:GLU = 114 HDL, POC 55 mg/dL Triglycerides, POC 110 mg/dL LDL Cholesterol POC 56 mg/dL Chol/HDL Ratio, POC 1.0 Non-HDL Cholesterol, POC 78 mg/dL Cholesterol Total, POC 133 mg/dL Capillary blood 04/06/2022 9 :01 AM FIBRE TECHNOLOGIST Joshua Bloom MD POINT OF CARE TEST ORDER JESSIKA Final Result from Last 3 Months or Most Recently Relevant to Health Maintenance Insurance [employer] Care Teams Adult High School Instructor Relationship Specialty Start Date End Date Geronimo Murillo MD PCP - General Family Practice 12/08/22
--- OUTSIDE RECORDS SUMMARY | 2024-07-19 09:26 | XMS_ITS | Continuity of Care Document ---
Author Organization [facility] Address [id number] [place] [address] [facility] [address] [place] [address] Phone Care Team Providers Care Printing Screen Assembler Name Role Phone Silvestre Mathews Unavailable Unavailable Procedures Procedure Date Office/outpatient Visit, [facility] Dilated Retinal Exam W Interpretation No Advance Directives Directive Yes / No Effective Date File Name No Information Encounters Encounter Description Practice Location Reason(s) For Visit Diagnoses Date Provider Providers Copied on Encounter Office/outpat ient Visit, [facility], [address], [place], [place], [id number], [place] tel:[phone] [facility] No Information [address]. [address] [facility] [address], [place], [address], [place]. tel:[phone] Referring Provider: Taisha Hdez MD, [address] [facility] [address], [place], [address]. tel:[phone] Family History Family Member Type Diagnosis Age At Onset No Information Payers Payer name Insurance type Covered libertarian ID Authoriza tion(s) Medicare [facility] [id number] [facility] Custom Care CI [id number] Social History Type Description Quantity Date Captured Comments Sex Female Smoking Status No Information Chief Complaint And Reason For Visit No Information Reason For Referral Reason For Referral No Information History Of Present Illness Encounter Date Complaint History Of Prese nt Illness No Information Functional Status Date Functional Assessmen t No Information Instructions Date Instruction Additional Infor mation No Information Assessments Type Assessment Date No Information Patient Care Teams Name Effective Dates (start - stop) Status Members No Information
--- OUTSIDE RECORDS SUMMARY | 2024-07-19 09:26 | XMS_ITS | Clinical Summary ---
Author Organization [facility] [address] Address [address] [place] [address] Care Team Providers Care Medical Device Sales Representative Name Role Phone Geronimo Murillo MD Primary Care Provider [phone] Allergies No known active allergies Medications aspirin [...] 40 mg tabletIndicatio ns:Coronary artery disease involving [place] coronary artery of [place] heart without angina pectoris TAKE 1 TABLET BY MOUTH EVERY DAY AT NIGHT 90 tablet 2 3 Active carvediloL (COREG) 12.5 mg tabletIndicatio ns:Coronary artery disease involving [place] coronary artery of [place] heart without angina pectoris TAKE 1 TABLET [...] HTN (hypertension), benign Chronic systolic heart failure ([facility]) 016 Overview (09/04/2016): Chronic systolic heart failure Acute non-ST elevation myoca rdial infarction (NSTEMI) ([facility]) 12/12/2015 Overview (09/04/2016): NSTEMI (non-ST elevated myocardial infarction) Cardiomyopathy 12/12/2015 Overview (09/04/2016): Cardiomyopathy Coronary artery disease invo lving [place] coronary artery of standing [place] heart without angina pectoris 12/12/2015 Overview (09/04/2016): Coronary artery disease involving [place] coronary artery of [place] heart without angina pectoris Mixed diabetic hyperlipidemi a associated with type 2 diabetes mellitus ([facility]) 12/12/2015 Overview (09/04/2016): DM type 2 with diabetic dyslipidemia Surgical History Surgery Date Site/Laterality Comments CORONARY ARTERY BYPASS GRAFT Medical History Medical History Date Comments Systolic heart failure ([facility]) ([facility]) Coronary artery disease Diabetes mellitus (HCC) Hyperlipidemia NSTEMI (non-ST elevated myocardial infarction) ( [facility]) ([facility]) Hypertension Family History Medical History Relation Name Comments Stroke Father 2 Stroke; Cause o f : Stroke Other Mother 2 Smoke inhalatio n from fire; Cause of : Smoke inhalation from fire Relation Name Status Comments Father 1 (Age 70) Father 2 Mother 1 (Age 83) Mother 2 Social History Tobacco Use Types Packs/Day Years [...] on file Legal Sex Female 8:11 AM DIRECTORY OPERATOR Gender Identity Not on file Sexual Orientation Not on file Obstetrics History Last Filed Vital Signs Vital Sign Reading [...] 12/08/2022 11:41 AM CDT Plan of Treatment Health Maintenance Due Date Last Done Comments Albumin Creatinine Ratio, Urine 1936 Depression Screening 1936 Fall Risk Assessment 1936 Hemoglobin A1C 1936 eGFR 1936 Dilated Eye Exam 1936 Foot Exam 1936 DTaP/Tdap/Td Vaccine (1 - Tdap) 09/28/1947 Hepatitis B Screening 1954 Pneumococcal vaccine 65+ (1 of 2 - PCV) 09/28/1955 Zoster Vaccine (1 of 2) 1986 Well Visit 65+ 2001 Lipid Panel 04/06/2023 04/06/2022, 02/28, 03/23/2019, Additional history exists Influenza Vaccine (#1) 2024 7, 03/26/2015, 05/07/2014 Procedures Procedure Name Priority Date/Time Associated Diagnosis Comments POCT LIPID PANEL Routine 04/06/2022 9:01 AM DIRECTORY OPERATOR Coronary artery disease involving [place] coronary artery of standing [place] heart without angina pectoris Mixed diabetic hyperlipidemia associated with type 2 diabetes mellitus (CMS/HCC) (HCC) from Last 3 Months or Most Recently Relevant to Health Maintenance Results * POCT lipid panel (04/06/2022 9:01 AM DIRECTORY OPERATOR) Cholesterol, POC 133 mg/dL Comment:GLU = 114 HDL, POC 55 mg/dL Triglycerides, POC 110 mg/dL LDL Cholesterol POC 56 mg/dL Chol/HDL Ratio, POC 1.0 Non-HDL Cholesterol, POC 78 mg/dL Cholesterol Total, POC 133 mg/dL Capillary blood 04/06/2022 9 :01 AM DIRECTORY OPERATOR Joshua Bloom MD POINT OF CARE TEST ORDER JESSIKA Final Result from Last 3 Months or Most Recently Relevant to Health Maintenance Insurance [employer] Care Teams Medical Device Sales Representative Relationship Specialty Start Date End Date Geronimo Murillo MD PCP - General Family Practice 12/08/22
[2024-07-19 11:14] LABS: Alanine Aminotransferase 13 U/L (6-35); Albumin Level 3.8 g/dL (3.5-5.1); Alkaline Phosphatase 71 U/L (38-126); Anion Gap 9 mmol/L (4-12); Aspartate Amino Transferase 21 U/L (14-36); Bilirubin,Total 0.5 mg/dL (0.2-1.3); Blood Urea Nitrogen 20 mg/dL (7-17); Calcium 9.3 mg/dL (8.4-10.2); Carbon Dioxide 24 mmol/L (22-30); Chloride 106 mmol/L (98-107); Cholesterol 226 mg/dL (0-200); Estimated Glomerular Filt Rate 41; Glucose 87 mg/dL (65-110); HDL Direct 55 mg/dL; Potassium 4.2 mmol/L (3.4-5.0); Sodium 139 mmol/L (137-145); Triglycerides 138 mg/dL (<150)
[2024-07-19 11:26] LABS: LDL Cholesterol Direct 137 mg/dL
[2024-07-19 11:40] LABS: Hematocrit 39.4 % (37.0-47.0); Hemoglobin 12.2 g/dL (12.0-15.0); Mean Corpuscular Hemoglobin 27.2 pg (26-34); Mean Corpuscular Volume 87.9 fl (80-100); Mean Platelet Volume 12.5 fl (7.4-10.4); Platelet Count Result 225 k/mm3 (150-375); Red Blood Count 4.48 M/mm3 (4.2-5.4); Red Cell Distribution Width 14.7 % (11.5-14.5); White Blood Count 8.2 K/mm3 (4.5-10.0)
[2024-07-19 12:17] LABS: Hemoglobin A1C 5.5 % (<5.7)
== END 2024-07-19 09:21 | disposition home or self-care (01) ==
LOC: ANHLAB 09:21
PROVIDERS: PCP Nurse Practitioner; Visit Provider Nurse Practitioner
DX: E78.5 Hyperlipidemia, unspecified (principal); E11.9 Type 2 diabetes mellitus without complications; D64.9 Anemia, unspecified; E53.8 Deficiency of other specified B group vitamins
CPT/HCPCS: 36415; 80053; 80061; 82607; 83036; 85027

== ENCOUNTER 2024-08-30 12:51 | Emergency (ER) | payer MEDICARE, SELFPAY ==
--- NOTE | ~2024-08-30 | XR_ITS ---
XR hand RT min 3V 08/30/2024 14:28 Indication: Right hand pain Procedure: 3 views right hand Comparison: No prior studies for comparison. Findings: Polyarticular osteoarthritis. Osteopenia. There is atherosclerosis. No fracture or traumati c malalignment. Impression: 1: Mild polyarticular osteoarthritis. Reviewed, dictated and finalized at location A. Impression: 1: Mild polyarticular osteoarthritis.
[2024-08-30 12:55] VITALS: BP 168/117; PULSE 88; RESP 16; TEMP 36.5; O2SAT 100
--- OUTSIDE RECORDS SUMMARY | 2024-08-30 14:04 | XMS_ITS | Referral Summary ---
Author Organization [facility] [address] Address [address] [place] [address] Care Team Providers Care Senior Research Consultant Name Role Phone Geronimo Murillo MD Primary Care Provider [phone] Allergies No known active allergies Medications aspirin [...] 40 mg tabletIndicatio ns:Coronary artery disease involving [place] coronary artery of [place] heart without angina pectoris TAKE 1 TABLET BY MOUTH EVERY DAY AT NIGHT 90 tablet 2 3 Active carvediloL (COREG) 12.5 mg tabletIndicatio ns:Coronary artery disease involving [place] coronary artery of [place] heart without angina pectoris TAKE 1 TABLET [...] HTN (hypertension), benign Chronic systolic heart failure 12/12/2015 Overview (09/04/2016): Chronic systolic heart failure Acute non-ST elevation myocardial infarction ([facility]) 12/12/2015 Overview (09/04/2016): NSTEMI (non-ST elevated myocardial infarction) Cardiomyopathy 12/12/2015 Overview (09/04/2016): Cardiomyopathy Coronary artery disease invo lving [place] coronary artery of [place] heart without angina pectoris 12/12/2015 Overview (09/04/2016): Coronary artery disease involving [place] coronary artery of [place] heart without angina pectoris Mixed diabetic hyperlipidemi a associated with type 2 diabetes mellitus ([facility]) 12/12/2015 Overview (09/04/2016): DM type 2 with [...] on file Legal Sex Female 8:11 AM CLASSICS PROFESSOR Gender Identity Not on file Sexual Orientation [...] POCT LIPID PANEL Routine 04/06/2022 9:01 AM CLASSICS PROFESSOR Coronary artery disease involving [place] coronary artery of [place] heart without angina pectoris Mixed diabetic hyperlipidemia associated with type 2 diabetes mellitus (HCC) from Last 3 Months or Most Recently Relevant to Health Maintenance Results * POCT lipid panel (04/06/2022 9:01 AM CLASSICS PROFESSOR) Cholesterol, POC 133 mg/dL Comment:GLU = 114 HDL, POC 55 mg/dL Triglycerides, POC 110 mg/dL LDL Cholesterol POC 56 mg/dL Chol/HDL Ratio, POC 1.0 Non-HDL Cholesterol, POC 78 mg/dL Cholesterol Total, POC 133 mg/dL Capillary blood 04/06/2022 9 :01 AM CLASSICS PROFESSOR Joshua Bloom MD POINT OF CARE TEST ORDER JESSIKA Final Result from Last 3 Months or Most Recently Relevant to Health Maintenance Insurance [facility] MEDICARE ADVANTAGE Care Teams Senior Research Consultant Relationship Specialty Start Date End Date Geronimo Murillo MD PCP - General Family Practice 12/08/22
--- OUTSIDE RECORDS SUMMARY | 2024-08-30 14:04 | XMS_ITS | Clinical Summary ---
Author Organization [facility] [address] Address [address] [place] [address] Care Team Providers Care Granite Fabricator Name Role Phone Geronimo Murillo MD Primary Care Provider [phone] Allergies No known active allergies Medications aspirin [...] 40 mg tabletIndicatio ns:Coronary artery disease involving [place] coronary artery of [place] heart without angina pectoris TAKE 1 TABLET BY MOUTH EVERY DAY AT NIGHT 90 tablet 2 3 Active carvediloL (COREG) 12.5 mg tabletIndicatio ns:Coronary artery disease involving [place] coronary artery of [place] heart without angina pectoris TAKE 1 TABLET [...] (09/04/2016): Cardiomyopathy Coronary artery disease invo lving [place] coronary artery of [place] heart without angina pectoris 12/12/2015 Overview (09/04/2016): Coronary artery disease involving [place] coronary artery of [place] heart without angina pectoris Mixed diabetic hyperlipidemi a associated with type 2 diabetes mellitus ([facility]/HCC) 12/12/2015 Overview (09/04/2016): DM type 2 with diabetic dyslipidemia Surgical History Surgery Date Site/Laterality Comments CORONARY ARTERY BYPASS GRAFT Medical History Medical History Date Comments Systolic heart failure (HCC) Coronary artery disease Diabetes mellitus (HCC) Hyperlipidemia NSTEMI (non-ST elevated myocardial infarction) ( HCC) Hypertension Family History Medical History Relation Name [...] on file Legal Sex Female 8:11 AM YOUTH AGENT Gender Identity Not on file Sexual Orientation [...] 02/28, 03/23/2019, Additional history exists Influenza Vaccine (Season Ended) 2025 07/24/2016, 03/26/2015, 05/07/2014 Procedures Procedure Name Priority Date/Time Associated Diagnosis Comments POCT LIPID PANEL Routine 04/06/2022 9:01 AM YOUTH AGENT Coronary artery disease involving [place] coronary artery of [place] heart without angina pectoris Mixed diabetic hyperlipidemia associated with type 2 diabetes mellitus (HCC) from Last 3 Months or Most Recently Relevant to Health Maintenance Results * POCT lipid panel (04/06/2022 9:01 AM YOUTH AGENT) Cholesterol, POC 133 mg/dL Comment:GLU = 114 HDL, POC 55 mg/dL Triglycerides, POC 110 mg/dL LDL Cholesterol POC 56 mg/dL Chol/HDL Ratio, POC 1.0 Non-HDL Cholesterol, POC 78 mg/dL Cholesterol Total, POC 133 mg/dL Capillary blood 04/06/2022 9 :01 AM YOUTH AGENT Joshua Bloom MD POINT OF CARE TEST ORDER JESSIKA Final Result from Last 3 Months or Most Recently Relevant to Health Maintenance Insurance [facility] MEDICARE ADVANTAGE Care Teams Granite Fabricator Relationship Specialty Start Date End Date Geronimo Murillo MD PCP - General Family Practice 12/08/22
--- OUTSIDE RECORDS SUMMARY | 2024-08-30 14:04 | XMS_ITS | Continuity of Care Document ---
Author Organization [facility] Address [address] [place] [address] [facility] [address] [place] [address] Phone Care Team Providers Care Underwater Hunter Name Role Phone Silvestre Mathews Unavailable Unavailable Procedures Procedure Date Office/outpatient Visit, [facility] Dilated Retinal Exam W Interpretation No Advance Directives Directive Yes / No Effective Date File Name No Information Encounters Encounter Description Practice Location Reason(s) For Visit Diagnoses Date Provider Providers Copied on Encounter Office/outpat ient Visit, [facility], [address], [place], [place], [id number], [place] tel:[phone] [facility] No Information [address]. [address] [facility] [address], [place], [address], [place]. tel:[phone] Referring Provider: Taisha Hdez MD, [address] [facility] [address], [place], [address]. tel:[phone] Family History Family Member Type Diagnosis Age At Onset No Information Payers Payer name Insurance type Covered republican ID Authoriza tion(s) Medicare [facility] [id number] [facility] Custom Care CI [id number] Social History Type Description Quantity Date Captured [...]
[2024-08-30] MEDS: ACETAMINOPHEN 325 MG TABLET 650 MG PO (14:09)
--- NOTE | 2024-08-30 14:18 | ED_ITS ---
HPI - Extremity Injury (Upper) General Chief Complaint: Extremity Injury, Upper Stated Complaint: right hand and forearm pain Time Seen by Provider: 08/30/24 13:43 Source: patient Mode of arrival: ambulatory Limitations: no limitations History of Present Illness HPI narrative: Patient is an 88-year-old female who presents the ED with report of right hand pain. Patient reports pain began yesterday. Present diffusely in her right hand, worse with flexion of the hand/fingers. Denies any injury or trauma. Patient took Aleve today prior to arrival with some improvement of pain. Denies numbness, has had some intermittent tingling in all of her fingers. Related Data Home Medications ?Medication ?Instructions ?Recorded ?Confirmed ?Last Taken ?Type aspirin 81 mg tablet,delayed 81 mg PO DAILY 04/07/19 07/19/24 07/17/21 08:00 History release simvastatin 40 mg tablet 40 mg PO HS 04/07/19 07/19/24 07/16/21 20:00 History Prevagen 1 tablet BYMOUTH DAILY 07/17/21 07/19/24 07/17/21 08:00 History loperamide 2 mg capsule (Imodium 2 mg PO DAILY PRN 08/14/21 07/19/24 Unknown History A-D) Allergies Allergy/AdvReac Type Severity Reaction Status Date / Time No Known Allergies Allergy Verified 08/30/24 12:54 Review of Systems Review of Systems: All systems reviewed & are unremarkable except as noted in HPI. All systems reviewed & are unremarkable except as noted in HPI and below PMFSH Past Medical History Medical History BMI 27.0-27.9,adult Chronic kidney disease (CKD) stage G3b/A1, moderately decreased glomerular filtration rate (GFR) between 30-44 mL/min/1.73 square meter and albuminuria creatinine ratio less than 30 mg/g Coronary artery disease involving [place] coronary artery of [place] heart Dementia, unspecified, without behavioral disturbance Essential hypertension Hyperlipidemia Hypothyroidism (acquired) Surgical History Surgical History History of total right knee replacement S/P CABG x 4 Family History Family History Mother No problems noted. Father Cerebrovascular accident Sibling Patient's sister is in good health Patient's brother is in good health Family history of malignant neoplasm Patient's brother is Social History Social History Social History: The patient lives with her of 60 years. Her is a durable power litigation attorney for healthcare. She has 3 children. She retired 15 years ago from [employer]. Lifelong nonsmoker. She does not use any alcohol marijuana or illicit drugs. Code status full code Smoking status: Never smoker Second hand tobacco smoke exposure: No Alcohol intake: current Substance use: never Substance use type: does not use Do You Feel Safe in your Home?: Yes Lack of Transportation: No Lack of Food: Never True Current Housing: I Have Housing Concerned About Future Housing: No Difficulty Paying Gas/Electric Bills: No Difficulty Paying for Meds: No Currently Unemployed: No Education: High School Diploma/GED Difficulty w/ Childcare or Family Care: No Living arrangements: with family Occupation/Education: retired Additional occupation/education comments: [employer] Gender identity (if verbalized by the patient): Female Spiritual care concerns: No Exam Narrative: GENERAL: Elderly but well appearing, well-nourished, non-toxic, in no acute distress. HEAD: Normocephalic, atraumatic. RESPIRATORY: Airway patent, respirations nonlabored. CARDIOVASCULAR: Regular rate and rhythm. Radial pulses strong and easily palpable MUSCULOSKELETAL: Moves all extremities. No gross deformities. Slight discomfort reported with flexion of fingers, but no significant focal bony reproducible tenderness. Sensation intact. Capillary refill intact. No tenderness over wrist, elbow. SKIN: Warm, dry, normal color. NEURO: A&O X3. Speech clear. No ataxic movements. PSYCHIATRIC: Appropriate mood and affect. Normal interaction. Course Vital Signs Vital signs: Vital Signs Temperature 97.7 F 08/30/24 12:55 Pulse Rate 88 08/30/24 12:55 Respiratory Rate 16 08/30/24 12:55 Blood Pressure 168/117 H 08/30/24 12:55 Pulse Oximetry 100 08/30/24 12:55 Oxygen Delivery Room Air 08/30/24 12:55 Temperature 97.7 F 08/30/24 12:55 Pulse Rate 88 08/30/24 12:55 Respiratory Rate 16 08/30/24 12:55 Blood Pressure 168/117 H 08/30/24 12:55 Pulse Oximetry 100 08/30/24 12:55 Oxygen Delivery Room Air 08/30/24 12:55 MDM - Extremity Injury (Upper) MDM Narrative Medical decision making narrative: Patient's injury is consistent with musculoskeletal etiology. No signs of neurologic or vascular compromise on physical examination. Compartments are soft without signs of compartment syndrome. XR of right hand showing osteoarthritis, no fracture. Pain is consistent with hand sprain. Also discussed possibility of carpal tunnel syndrome. Patient is felt to be stable for discharge home and further outpatient management and treatment. Given Hao bandage in the ED. A dvised to continue Tylenol/Aleve at home as needed. Discussed rice therapy, return precautions. Patient in agreement with plan. Discharged in stable condition. Medical Records Attestation: I reviewed the patient's medical records. Imaging Data Attestation: I personally reviewed and interpreted this imaging study as follows: Radiologist's impression: ITS Impressions Hand X-Ray 08/30/24 14:33 Impression: 1: Mild polyarticular osteoarthritis. Discharge Plan Discharge Clinical Impression: Strain of right hand Qualifiers: Encounter type: initial encounter Qualified Code(s): S66.911A - Strain of unspecified muscle, fascia and tendon at wrist and hand level, right hand, initial encounter Patient Disposition: Home, Self-Care Condition: Stable Instructions: Antibiotic Form, Hand Sprain (ED), P.R.I.C.E. Treatment (ED) Additional Instructions: Your imaging here showed evidence of arthritis in your hand. You may have strained your hand and may be sore over the next few days. Recommend ice to hand, HAO bandage for compression and support, continue Tylenol and aleve as needed for pain. Follow up with your primary care doctor and/or orthopedics for further evaluation if needed. Return to the ED if you experience worsening or severe pain, numbness, injury, or any other symptoms of concern. Patient Language: Chilean Prescriptions: No Action aspirin 81 mg tablet,delayed release (DR/EC) 81 mg PO DAILY simvastatin 40 mg tablet 40 mg PO HS Prevagen 1 tablet BYMOUTH DAILY Saccharomyces boulardii [Florastor] 250 mg capsule 250 mg PO BID 7 Days Qty: 14 0RF (DME) blood-glucose meter [Accu-Chek Yael Plus Meter] Misc See Rx Instructions .Route Qty: 1 0RF Rx Instructions: As directed; once daily (DME) Accu-Chek Yael Plus test strp Strip See Rx Instructions .Route Qty: 50 3RF Rx Instructions: As directed once daily loperamide [Imodium A-D] 2 mg capsule 2 mg PO DAILY PRN (DME) lancets [Accu-Chek Softclix Lancets] Misc See Rx Instructions .Route Qty: 200 1RF Rx Instructions: As directed (DME) Accu-Chek Guide test strips Strip See Rx Instructions .Route Qty: 100 1RF Rx Instructions: Use to test blood sugars once daily lisinopril 40 mg tablet 40 mg PO DAILY Qty: 90 1RF carvedilol 6.25 mg tablet See Rx Instructions .ROUTE .COMPLEX Qty: 360 1RF Dose Instruction: 12.5 MG ORALLY TWICE A DAY Rx Instructions: 12.5 MG ORALLY TWICE A DAY oxybutynin chloride 5 mg tablet 5 mg PO DAILY Qty: 90 1RF hydralazine 100 mg tablet 100 mg PO TID Qty: 270 5RF Rx Instructions: Q6H cyanocobalamin (vitamin B-12) [Vitamin B-12] 1,000 mcg tablet 1,000 mcg PO QAM Qty: 90 1RF Follow-up/Referrals: Brenden Sullivan APRN [Primary Care Provider] - Moreno Corbett MD [Physician] - (ORTHOPEDICS) Time of Disposition: 14:41
--- OUTSIDE RECORDS SUMMARY | 2024-08-30 15:14 | XMS_ITS | Continuity of Care Document ---
Author Organization [facility] Address [id number] [place] [address] [facility] [address] [place] [address] Phone Care Team Providers Care Company Marker Name Role Phone Silvestre Mathews Unavailable Unavailable Procedures Procedure Date Office/outpatient Visit, [facility] Dilated Retinal Exam W Interpretation No Advance Directives Directive Yes / No Effective Date File Name No Information Encounters Encounter Description Practice Location Reason(s) For Visit Diagnoses Date Provider Providers Copied on Encounter Office/outpat ient Visit, [facility], [address] [place], [place], [id number], [place] tel:[phone] [facility] No Information [address]. [address] [facility] [address], [place], [address], [place]. tel:[phone] Referring Provider: Taisha Hdez MD, [address] [facility] [address], [place], [address]. tel:[phone] Family History Family Member Type Diagnosis Age At Onset No Information Payers Payer name Insurance type Covered democrat ID Authoriza tion(s) Medicare [facility] [id number] [facility] Custom Care CI [id number] Social History Type Description Quantity Date Captured [...]
--- OUTSIDE RECORDS SUMMARY | 2024-08-30 15:14 | XMS_ITS | Clinical Summary ---
Author Organization [facility] [address] Address [address] [place] [address] Care Team Providers Care Tombstone Erector Name Role Phone Geronimo Murillo MD Primary Care Provider [phone] Allergies No known active allergies Medications aspirin [...] 40 mg tabletIndicatio ns:Coronary artery disease involving [place] coronary artery of [place] heart without angina pectoris TAKE 1 TABLET BY MOUTH EVERY DAY AT NIGHT 90 tablet 2 3 Active carvediloL (COREG) 12.5 mg tabletIndicatio ns:Coronary artery disease involving [place] coronary artery of [place] heart without angina pectoris TAKE 1 TABLET [...] (09/04/2016): Cardiomyopathy Coronary artery disease invo lving [place] coronary artery of [place] heart without angina pectoris 12/12/2015 Overview (09/04/2016): Coronary artery disease involving [place] coronary artery of [place] heart without angina pectoris Mixed diabetic hyperlipidemi a associated with type 2 diabetes mellitus ([facility]/HCC) 12/12/2015 Overview (09/04/2016): DM type 2 with [...] on file 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 Gender Identity Not on file Sexual Orientation [...] POCT LIPID PANEL Routine 04/06/2022 9:01 AM BULLET SWAGING MACHINE ADJUSTER Coronary artery disease involving [place] coronary artery of [place] heart without angina pectoris Mixed diabetic hyperlipidemia associated with type 2 diabetes mellitus (HCC) from Last 3 Months or Most Recently Relevant to Health Maintenance Results * POCT lipid panel (04/06/2022 9:01 AM BULLET SWAGING MACHINE ADJUSTER) Cholesterol, POC 133 mg/dL Comment:GLU = 114 HDL, POC 55 mg/dL Triglycerides, POC 110 mg/dL LDL Cholesterol POC 56 mg/dL Chol/HDL Ratio, POC 1.0 Non-HDL Cholesterol, POC 78 mg/dL Cholesterol Total, POC 133 mg/dL Capillary blood 04/06/2022 9 :01 AM BULLET SWAGING MACHINE ADJUSTER Joshua Bloom MD POINT OF CARE TEST ORDER JESSIKA Final Result from Last 3 Months or Most Recently Relevant to Health Maintenance Insurance [facility] [place] [address] Care Teams Tombstone Erector Relationship Specialty Start Date End Date Geronimo Murillo MD PCP - General Family Practice 12/08/22
--- OUTSIDE RECORDS SUMMARY | 2024-08-30 15:14 | XMS_ITS | Referral Summary ---
Author Organization [facility] [address] Address [address] [place] [address] Care Team Providers Care Sports Psychologist Name Role Phone Geronimo Murillo MD Primary Care Provider [phone] Allergies No known active allergies Medications aspirin [...] 40 mg tabletIndicatio ns:Coronary artery disease involving [place] coronary artery of [place] heart without angina pectoris TAKE 1 TABLET BY MOUTH EVERY DAY AT NIGHT 90 tablet 2 3 Active carvediloL (COREG) 12.5 mg tabletIndicatio ns:Coronary artery disease involving [place] coronary artery of [place] heart without angina pectoris TAKE 1 TABLET [...] (09/04/2016): Cardiomyopathy Coronary artery disease invo lving [place] coronary artery of [place] heart without angina pectoris 12/12/2015 Overview (09/04/2016): Coronary artery disease involving [place] coronary artery of [place] heart without angina pectoris Mixed diabetic hyperlipidemi a associated with type 2 diabetes mellitus ([facility]) 12/12/2015 Overview (09/04/2016): DM type [...] on file 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 Gender Identity Not on file Sexual Orientation [...] POCT LIPID PANEL Routine 04/06/2022 9:01 AM PRINT LINE TAILER Coronary artery disease involving [place] coronary artery of [place] heart without angina pectoris Mixed diabetic hyperlipidemia associated with type 2 diabetes mellitus (HCC) from Last 3 Months or Most Recently Relevant to Health Maintenance Results * POCT lipid panel (04/06/2022 9:01 AM PRINT LINE TAILER) Cholesterol, POC 133 mg/dL Comment:GLU = 114 HDL, POC 55 mg/dL Triglycerides, POC 110 mg/dL LDL Cholesterol POC 56 mg/dL Chol/HDL Ratio, POC 1.0 Non-HDL Cholesterol, POC 78 mg/dL Cholesterol Total, POC 133 mg/dL Capillary blood 04/06/2022 9 :01 AM PRINT LINE TAILER Joshua Bloom MD POINT OF CARE TEST ORDER JESSIKA Final Result from Last 3 Months or Most Recently Relevant to Health Maintenance Insurance [facility] MEDICARE ADVANTAGE Care Teams Sports Psychologist Relationship Specialty Start Date End Date Geronimo Murillo MD PCP - General Family Practice 12/08/22
== END 2024-08-30 14:55 | disposition home or self-care (01) ==
PROVIDERS: Emergency Provider Physician Assistant; PCP Nurse Practitioner
DX: S66.911A Strain of unspecified muscle, fascia and tendon at wrist and hand level, right hand, initial encounter (principal); I12.9 Hypertensive chronic kidney disease with stage 1 through stage 4 chronic kidney disease, or unspecified chronic kidney disease; N18.32 Chronic kidney disease, stage 3b; E78.5 Hyperlipidemia, unspecified; E03.9 Hypothyroidism, unspecified; I25.10 Atherosclerotic heart disease of native coronary artery without angina pectoris; F03.90 Unspecified dementia, unspecified severity, without behavioral disturbance, psychotic disturbance, mood disturbance, and anxiety; X58.XXXA Exposure to other specified factors, initial encounter
CPT/HCPCS: 73130; 99283; A9270